=== PATIENT | male | born 1940 | race Caucasian/White ===

== ENCOUNTER 2016-12-31 05:38 | Day surgery (SDC) | payer OTHER ==
--- NOTE | ~2016-12-31 | EGD ---
EGD REPORT [facility] [address] [place] [address] NAME: RICARDO GARAY : 40 STATUS : REG [facility]#: [id number] AGE: 76 ADM/REG DATE : 12/31/16 MR#: [id number] REPORT SERV DATE: 12/31/16 DICTATED BY: SIMONE GARCIA DATE: 12/31/16 REPORT STATUS : Draft [facility]ANS[facility]IBED BY: [facility] DATE: 12/31/16 End[facility] Center Patient Name: Ricardo Garay Date of : 1940 Attending MD: SIMONE GARCIA MD Procedure Date No Time: 12/31/2016 Procedure: Upper GI endoscopy Indications: Dysphagia Referring MD: Norris Souza Medicines: Propofol per Anesthesia Complications: No immediate complications. Procedure: After obtaining informed consent, the endoscope was passed under direct vision. Throughout the procedure, the patient's blood pressure, pulse, and oxygen saturations were monitored continuously. The GIF [id number] was introduced through the mouth, and advanced to the second part of duodenum. The upper GI endoscopy was accomplished without difficulty. The patient tolerated the procedure well. Findings: The oropharynx was normal. Savary-Valenzuela Grade I (single erosion or exudate, oval or linear, single fold) esophagitis with no bleeding was found at the gastroesophageal junction. A benign-appearing, intrinsic moderate stenosis was found at the gastroesophageal junction and was traversed. A guidewire was placed and the scope was withdrawn. Dilation was performed with a Savary dilator with no resistance at 54 Fr. There is no endoscopic evidence of hiatus hernia in the entire examined stomach. The examined duodenum was normal. Impression: - Normal oropharynx. - Savary-Valenzuela Grade I erosive esophagitis. - Benign-appearing esophageal stricture. Dilated. - Normal examined duodenum. Recommendation: - The patient will be observed post-procedure, until all discharge criteria are met. - Continue present medications. - The findings and recommendations were discussed with the patient and their spouse. - After the procedure, if you experience any pain in abdomen or chest,shortness of breath,fever,chills,blood EGD REPORT [address] [address] NAME: RICARDO GARAY : 40 STATUS : REG [facility]#: [id number] AGE: 76 ADM/REG DATE : 12/31/16 MR#: [id number] REPORT SERV DATE: 12/31/16 DICTATED BY: SIMONE GARCIA. DATE: 12/31/16 REPORT STATUS : Draft TRANSCRIBED BY: [facility] DATE: 12/31/16 in stool,rectal bleeding,vomiting of any material,nausea,black stools or weakness or dizziness, GO TO THE EMERGENCY IMMEDIATELY!!!!!!!!! Procedure Code(s): --- Professional --- 60348, Esophagogastroduodenoscopy, flexible, transoral; with insertion of guide wire followed by passage of dilator(s) through esophagus over guide wire Diagnosis Code(s): --- Professional --- K20.8, Other esophagitis K22.2, Esophageal obstruction R13.10, Dysphagia, unspecified CPT copyright 2013 [employer]. All rights reserved. The codes documented in this report are preliminary and upon clinical coder review may be revised to meet current compliance requirements. Simone Garcia MD SIMONE GARCIA MD 12/31/2016 8:13 AM This report has been signed electronically. Number of Addenda: 0 Note Initiated On: 12/31/2016 6:59 AM Scope Withdrawal Time 0 hours 0 minutes 0 seconds [id number] [id number]
[~2016-12-31 05:38] MED LIST: ALLERGY INJECTION SC; AMIT25 PO; AMITRIP PO; ASAB PO; ASTELIN NAS; CAT1 PO; CDP PO; COMBIVENT RESPIM4 GM INH; CYANO1000T PO; EPIPEN0.3 IM; FISH-EPA1000 MG PO; FLONASE NAS; FORADIL INH; GARLIC PO; GARLIFE PO; LEXAPRO10 PO; LISINOPRIL40 MG PO; MAXIMUM D3; MCZ25 PO; MUCINEX DM1 TAB OR; MULTIPLE VIT PO; NORV5 PO; PCET PO; PHYTOPLEX PO; PR25 PO; PREV30 PO; PRILO PO; PRIN20 PO; PROAIR HFA INH; SINGULAIR1 PO; SPIRIVA INH; STOOL SOFTEN240 MG PO; SURBEX/ZINC1 TAB PO; SYMBICORT 160/41 INH INH; T100 PO; TESS PO; TRAZ100 PO; VITAMIN D31000 UNIT PO; VITC500 PO; VITE PO; XOLAIR SC; XYZAL5 MG PO; ZANAFLEX 4 MG TA4 MG PO; ZYRTEC ALLGY10 MG PO; [UNRECOGNIZED DRUG - OTHER]
== END 2016-12-31 23:59 | disposition home or self-care (01) ==
LOC: DMU 05:38
PROVIDERS: Internal Medicine Gastroenterology
PROC: 0D747ZZ Dilation of Esophagogastric Junction, Via Natural or Artificial Opening (ICD-10-PCS; principal; 2016-12-31 08:00)
DX: K20.8 Other esophagitis (principal); K22.2 Esophageal obstruction; R13.10 Dysphagia, unspecified; I25.10 Atherosclerotic heart disease of native coronary artery without angina pectoris; I10 Essential (primary) hypertension; I49.3 Ventricular premature depolarization; J44.9 Chronic obstructive pulmonary disease, unspecified; N40.0 Benign prostatic hyperplasia without lower urinary tract symptoms; I71.4 Abdominal aortic aneurysm, without rupture; L30.9 Dermatitis, unspecified; K22.0 Achalasia of cardia; H91.90 Unspecified hearing loss, unspecified ear; M19.90 Unspecified osteoarthritis, unspecified site; J32.9 Chronic sinusitis, unspecified; Z95.5 Presence of coronary angioplasty implant and graft; Z98.890 Other specified postprocedural states; Z98.41 Cataract extraction status, right eye; Z98.42 Cataract extraction status, left eye; Z96.1 Presence of intraocular lens; Z87.01 Personal history of pneumonia (recurrent); Z87.891 Personal history of nicotine dependence; Z79.899 Other long term (current) drug therapy; Z79.891 Long term (current) use of opiate analgesic; Z79.51 Long term (current) use of inhaled steroids; Z79.82 Long term (current) use of aspirin
CPT/HCPCS: J0585